=== PATIENT | female | born 1965 | race Caucasian/White ===

== ENCOUNTER 2022-02-13 10:36 | Emergency (ER) | payer MEDICAID ==
[~2022-02-13] VITALS: Ht 162.6 cm; Wt 61.2 kg
--- NOTE | 2022-02-13 10:45 | NUR ---
[facility] pt 56yrs [facility] fall down one HR AGO no difformity
--- NOTE | 2022-02-13 10:55 | NUR ---
Seen by DR. BOWEN
--- NOTE | 2022-02-13 11:00 | NUR ---
X-RAY done at bed side
--- NOTE | 2022-02-13 11:30 | NUR ---
Crutches dispensed. Pt instructed on proper use of crutches. Patient able to demonstrate correct use of crutches.
--- NOTE | 2022-02-13 11:36 | NUR ---
Patient discharged to home in stable condition. Written and verbal after care instructions given. Patient verbalizes understanding of instruction.
[2022-02-13 11:54] VITALS: BP 130/73
== END 2022-02-13 11:54 | disposition home or self-care (01) ==
LOC: ER 10:39
DX: S93.401A Sprain of unspecified ligament of right ankle, initial encounter (principal); F17.200 Nicotine dependence, unspecified, uncomplicated; Z60.2 Problems related to living alone; W01.0XXA Fall on same level from slipping, tripping and stumbling without subsequent striking against object, initial encounter; Y93.89 Activity, other specified; Y92.89 Other specified places as the place of occurrence of the external cause; Y99.8 Other external cause status
CPT/HCPCS: 73610-TC